=== PATIENT | male | born 1980 | race Hispanic/Latino ===

== ENCOUNTER 2017-07-16 08:52 | Emergency (ER) | payer SELFPAY ==
[2017-07-16 09:05] VITALS: O2SAT 96
[2017-07-16] MEDS ORDERED: Naproxen 550 mg Tab PO STA (09:14)
--- NOTE | 2017-07-16 09:17 | C.PDOC ---
History Of Present Illness 36 yo male, hx of ptsd, presents iwth right sided rib pain s/p fall 2 days ago. pt states he slipped while carrying his child and the impact of his child against him injured his right side. no other injury or complaint. no sob, fever , head injury, loc Time Seen by Provider: 07/16/17 09:06 Chief Complaint (Nursing): Upper Extremity Problem/Injury Past Medical History Reviewed: Historical Data, Nursing Documentation, Vital Signs Vital Signs: Last Vital Signs Temp 98.5 F 07/16/17 10:28 Pulse 70 07/16/17 10:28 Resp 20 07/16/17 10:28 BP 125/92 H 07/16/17 10:28 Pulse Ox 96 07/16/17 10:28 - Medical History PMH: Anxiety, Post Traumatic Stress Disorder Family History: States: Unknown Family Hx - Social History Hx Alcohol Use: Yes Hx Substance Use: No - Immunization History Hx Tetanus Toxoid Vaccination: No Hx Influenza Vaccination: No Hx Pneumococcal Vaccination: No Review Of Systems Except As Marked, All Systems Reviewed And Found Negative. Musculoskeletal: Positive for: Other (right side chest pain) Physical Exam - Physical Exam Appears: Well, No Acute Distress, Other (speaking full sentences, texting in nad. ) Skin: Normal Color, Warm, Dry Eye(s): bilateral: Normal Inspection, PERRL, EOMI Nose: Normal Throat: Normal Neck: Normal Chest: Tenderness (right sided costal margin, anterior/posterior) Cardiovascular: Rhythm Regular Respiratory: Normal Breath Sounds Gastrointestinal/Abdominal: Normal Exam Back: Normal Inspection Extremity: Normal ROM ED Course And Treatment O2 Sat by Pulse Oximetry: 96 Medical Decision Making Medical Decision Making: ro rib fx xr right 5th rib fx, pt comfortable minimal analgesia needed in er. on phon e speaking full sentneces lungs cta. [email or web address] Disposition - Disposition Referrals: [facility] [Outside] [facility] [Outside] Disposition: HOME/ ROUTINE Disposition Time: 09:57 Condition: STABLE Additional Instructions: please follow up with your doctor/clinic. return to er with worsening symptoms or concerns. Prescriptions: Naproxen 500 mg PO BID PRN #14 tablet PRN Reason: Pain, Mild (1-3) traMADol [Ultram] 50 mg PO TID PRN #10 tab PRN Reason: Pain, Severe (8-10) Instructions: Rib Fractures in Adults Forms: [facility] ([place]) - Clinical Impression Clinical Impression: Rib fracture
[2017-07-16] MEDS ORDERED: Naproxen 550 mg Tab PO ONE (09:22)
[2017-07-16 10:29] VITALS: BP 125/92; PULSE 70; RESP 20; TEMP 98.5
--- NOTE | 2017-07-16 10:39 | RAD ---
PROCEDURE: Radiographs of the scapula HISTORY: Trauma COMPARISON: None TECHNIQUE: AP and lateral radiographs of the right scapula were obtained. FINDINGS: There is no acute displaced fracture or bone destruction. Bone alignment and mineralization are normal. The joint spaces are preserved. The periarticular soft tissues are normal. IMPRESSION: No acute fracture or dislocation.
--- NOTE | 2017-07-16 10:42 | RAD ---
PROCEDURE: Radiographs of the Chest and Right Ribs. HISTORY: trauma COMPARISON: None available. TECHNIQUE: Frontal radiograph of the chest and multiple oblique radiographs of the right ribs were obtained. FINDINGS: RIGHT RIBS: There is an acute mildly displaced fracture in the right posterior 5th rib. No destructive lesion is visualized. LUNGS: The lungs are well inflated and clear. PLEURA: No pneumothorax or pleural fluid. CARDIOVASCULAR: Normal sized heart. No pulmonary vascular congestion. OTHER FINDINGS: None. IMPRESSION: Acute mildly displaced fracture in the right posterior 5th rib. No pleural effusion or pneumothorax.
== END 2017-07-16 10:46 | disposition home or self-care (01) ==
LOC: C.ER 08:52
DX: S22.31XA Fracture of one rib, right side, initial encounter for closed fracture (principal); W01.0XXA Fall on same level from slipping, tripping and stumbling without subsequent striking against object, initial encounter; Y92.89 Other specified places as the place of occurrence of the external cause